=== PATIENT | male | born 1970 | race Caucasian/White ===

== ENCOUNTER 2016-09-08 19:01 | Emergency (ER) | payer BC ==
[~2016-09-08] VITALS: Ht 190.5 cm; Wt 96.0 kg
[2016-09-08 19:04] VITALS: Ht 190.5 cm; Wt 96.0 kg
[2016-09-08] MEDS ORDERED: SOD CHLORIDE 0.9% 1,000 ML IV STA (19:23)
[2016-09-08] MEDS ORDERED: morphine 4 MG/ML VIAL IV STA (19:23)
[2016-09-08] MEDS ORDERED: ONDANSETRON 4 MG INJ IV STA ×2 (19:23→21:05)
[2016-09-08 20:03] LABS: BASOPHILS % 0.3 % (0.0-2.0); EOSINOPHILS % 0.1 % (0.0-7.0); HEMATOCRIT 43.5 % (42.0-52.0); HEMOGLOBIN 14.7 g/dl (14.0-18.0); LYMPHOCYTES # 1.5 10^3/ul (0.8-2.9); LYMPHOCYTES % 13.9 % (15.0-51.0); MEAN CORPUSCULAR HEMOGLOBIN 30.8 pg (29.0-33.0); MEAN CORPUSCULAR HGB CONC 33.7 g/dl (32.0-37.0); MEAN CORPUSCULAR VOLUME 91.4 fl (82.0-101.0); MEAN PLATELET VOLUME 8.2 fl (7.4-10.4); MONOCYTE # 0.6 10^3/ul (0.3-0.9); MONOCYTES % 5.8 % (0.0-11.0); NEUTROPHIL # 8.4 10^3/ul (1.6-7.5); NEUTROPHILS % 79.9 % (39.0-77.0); PLATELET COUNT 303 10^3/UL (140-440); RED BLOOD COUNT 4.76 10^6/ul (4.70-6.10); RED CELL DISTRIBUTION WIDTH 13.2 % (11.5-14.5); UNCORRECTED WBC 10.5 10^3/ul (4.8-10.8); WHITE BLOOD COUNT 10.5 10^3/ul (4.8-10.8)
--- NOTE | 2016-09-08 20:06 | RADRPT ---
PROCEDURE: Ultrasound Gallbladder. CLINICAL INDICATION: Abdominal pain. TECHNIQUE: Multiple sonographic images of the right upper quadrant of the abdomen were obtained. COMPARISON: CT abdomen/pelvis 09/08/2016. FINDINGS: The visualized pancreas, aorta and IVC are unremarkable. The liver measures 16.3 cm in a craniocaudal dimension and is normal in echogenicity. The main port al vein is patent with antegrade flow. The common bile duct measures 3.8 mm, which is within normal limits. The gallbladder is not distended. There are no internal echoes to suggest the presence of cholelithiasis. There is no gallbladder wall thickening or pericholecystic fluid. The right kidney measures 11.5 cm in length. There is no hydronephrosis. IMPRESSION: Unremarkable gallbladder/right upper quadrant abdominal ultrasound. RPTAT: HLST .Kori Carlin MD, MD Date Time Electronically viewed and signed by .Kori Carlin MD, on 09/08/2016 20:06 .T/
[2016-09-08 20:09] LABS: CONDITION 1
[2016-09-08 20:12] LABS: ALBUMIN 4.5 g/dl (3.3-4.9)
[2016-09-08 20:13] LABS: POTASSIUM 4.1 mmol/L (3.5-5.1)
[2016-09-08 20:15] LABS: ALBUMIN/GLOBULIN RATIO 1.66; BILIRUBIN,INDIRECT 0.4 mg/dl (0-1.1); BILIRUBIN,TOTAL 0.4 mg/dl (0.2-1.3); CREATININE 0.82 mg/dl (0.61-1.24); TOTAL PROTEIN 7.2 g/dl (6.1-8.1)
[2016-09-08 20:16] LABS: CALCIUM 9.3 mg/dl (8.4-10.2)
--- NOTE | 2016-09-08 20:20 | RADRPT ---
PROCEDURE: CT abdomen and pelvis without intravenous contrast. CLINICAL INDICATION: Right upper quadrant pain. TECHNIQUE: CT of the abdomen/pelvis was performed utilizing axial images with reconstructions in s agittal and coronal planes. The administered radiation dose is CTDI 10.6 mGy, DLP 570 mGy-cm. COMPARISON: No pertinent prior examinations were submitted for comparison. FINDINGS: Visualized Chest: The visualized lung bases are clear. Abdomen: The liver, spleen, pancreas, gallbladder,and adrenal glands are unremarkable. The kidneys are without hydronephrosis. No definite urinary calculi are seen. There is no evidence of bowel obstruction. The appendix is normal. No intra-abdominal free air is seen. There is no evidence of intra-abdominal adenopathy or free fluid. Pelvis: There is no evidence of pelvic adenopathy of free fluid. The prostate and bladder are unremarkable. Osseous structures: Unremarkable. IMPRESSION: No acute findings. RPTAT: HIKT .Ethan Vogel MD, MD Date Time Electronically viewed and signed by .Ethan Vogle MD, MD on 09/08/2016 20:19 .T/
[2016-09-08] MEDS ORDERED: DICLOFENAC SODIUM 37.5 MG/ML VIAL IV STA (20:21)
[2016-09-08 20:46] LABS: ADD UMIC NO; URINE BILIRUBIN (Dip) NEGATIVE (NEGATIVE); URINE BLOOD (Dip) NEGATIVE (NEGATIVE); URINE COLOR LT. YELLOW (YELLOW); URINE GLUCOSE (Dip) NEGATIVE (NEGATIVE); URINE KETONES (Dip) NEGATIVE (NEGATIVE); URINE LEUKOCYTE ESTERASE (Dip) NEGATIVE (NEGATIVE); URINE NITRITE (Dip) NEGATIVE (NEGATIVE); URINE TOTAL PROTEIN (Dip) NEGATIVE (NEGATIVE); URINE UROBILINOGEN (Dip) 1.0 E.U./dL (0.1-1.0)
[2016-09-08] MEDS ORDERED: ONDA4TAB14 PO (21:06)
[2016-09-08] MEDS ORDERED: HYDR-902 PO (21:06)
[2016-09-08 21:19] VITALS: BP 141/58; PULSE 88; RESP 18
--- NOTE | 2016-09-08 21:44 | ERD ---
ER Documentation Chief Complaint Date/Time DATE: 09/08/16 TIME: 21:41 Chief Complaint abdominal pain x 3 days, nausea HPI Patient is a 45-year-old male with hypertension and diabetes who presents with abdominal pain. He said that 2 days ago he started with abdominal pain. He has a history of a hernia at 6 years old which she had repaired and was concerned he might have another hernia. He has had vomiting but no diarrhea. The pain was initially midepigastric but then moved to the right upper quadrant. He also has right-sided back pain as well. He thought it might have been a virus but it persisted and got worse. He has no fevers. He has no body aches. He tried Zantac and Motrin. His primary doctor is Dr. Montenegro. Upon review of old medical records this is the patient's first visit to the emergency department. ROS All systems reviewed and are negative except as per history of present illness. Medications Home Meds Active Scripts Ondansetron (Ondansetron Odt) 4 Mg Tab.rapdis, 4 MG PO Q6H Y for NAUSEA AND/OR VOMITING, #30 TAB Prov:FORREST HUANG MD 09/08/16 Hydrocodone/Acetaminophen ([place] 10-325 Tablet) 1 Each Tablet, 1 TAB PO Q6H Y for PAIN, #12 TAB Prov:FORREST HUANG MD 09/08/16 Allergies Allergies: Coded Allergies: No Known Allergy (Unverified , 09/08/16) PMhx/Soc Positive for hypertension and diabetes Hx Alcohol Use: No Hx Substance Use: No Hx Tobacco Use: No Smoking Status: Never smoker FmHx Family History: diabetes Physical Exam Vitals Vital Signs Date Time Temp Pulse Resp B/P Pulse Ox O2 Delivery O2 Flow Rate FiO2 09/08/16 21:19 88 18 141/58 Room Air 09/08/16 20:12 78 18 148/68 98 Room Air 09/08/16 19:04 98.4 75 20 150/76 99 Physical Exam Const: Mild distress secondary to pain Head: Atraumatic Eyes: Normal Conjunctiva ENT: Normal External Ears, Nose and Mouth. Neck: Full range of motion..~ No meningismus. Resp: Clear to auscultation bilaterally Cardio: Regular rate and rhythm, no murmurs Abd: Soft, midepigastric and right upper quadrant tenderness to palpation without rebound or guarding Skin: No petechiae or rashes Back: No midline or flank tenderness Ext: No cyanosis, or edema Neur: Awake and alert Psych: Normal Mood and Affect Result Diagram: 09/08/16195409/08/161954 Results 24 hrs Laboratory Tests Test 09/08/16 19:55 09/08/16 20:20 Alanine Aminotransferase (ALT/SGPT) 44IU/L Albumin 4.5g/dl Albumin/Globulin Ratio 1.66 Alkaline Phosphatase 48IU/L Anion Gap 17 Aspartate Amino Transf (AST/SGOT) 25IU/L Basophils # 0.010^3/ul Basophils % 0.3% Blood Urea Nitrogen 15mg/dl Calcium Level 9.3mg/dl Carbon Dioxide Level 27mmol/L Chloride Level 103mmol/L Creatinine 0.82mg/dl Direct Bilirubin 0.00mg/dl Eosinophils # 0.010^3/ul Eosinophils % 0.1% Globulin 2.70g/dl Glucose Level 118mg/dl Hematocrit 43.5% Hemoglobin 14.7g/dl Indirect Bilirubin 0.4mg/dl Lipase 203U/L Lymphocytes # 1.510^3/ul Lymphocytes % 13.9% Mean Corpuscular Hemoglobin 30.8pg Mean Corpuscular Hemoglobin Concent 33.7g/dl Mean Corpuscular Volume 91.4fl Mean Platelet Volume 8.2fl Monocytes # 0.610^3/ul Monocytes % 5.8% Neutrophils # 8.410^3/ul Neutrophils % 79.9% Nucleated Red Blood Cells # 0.010^3/ul Nucleated Red Blood Cells % 0.0/100WBC Platelet Count 36147^3/UL Potassium Level 4.1mmol/L Red Blood Count 4.7610^6/ul Red Cell Distribution Width 13.2% Sodium Level 143mmol/L Total Bilirubin 0.4mg/dl Total Protein 7.2g/dl White Blood Count 10.510^3/ul Urine Bilirubin NEGATIVE Urine Clarity HAZY Urine Color LT. YELLOW Urine Glucose NEGATIVE% Urine Hemoglobin NEGATIVE Urine Ketones NEGATIVE Urine Leukocyte Esterase NEGATIVE Urine Nitrite NEGATIVE Urine Specific [place] 1.015 Urine Total Protein NEGATIVE Urine Urobilinogen 1.0 E.U./dL Urine pH 8.5 Current Medications Medications (Trade) Dose Ordered Sig/Myrna Route PRN Reason Start Time Stop Time Status Last Admin Dose Admin Sodium Chloride (NS) 1,000 ml @ 1,000 mls/hr Q1H STAT IV 09/08/16 19:23 09/08/16 20:22 DC 09/08/16 20:00 Morphine Sulfate (morphine) 4 mg ONCE STAT IV 09/08/16 19:23 09/08/16 19:25 DC 09/08/16 19:40 Ondansetron HCl (Zofran Inj) 4 mg ONCE STAT IV 09/08/16 19:23 09/08/16 19:25 DC 09/08/16 19:40 Diclofenac Sodium (Dyloject) 37.5 mg ONCE STAT IV 09/08/16 20:21 09/08/16 20:22 DC 09/08/16 20:38 Ondansetron HCl (Zofran Inj) 4 mg ONCE STAT IV 09/08/16 21:05 09/08/16 21:06 DC 09/08/16 21:11 Procedures/MDM CT scan shows no surgical process per radiology. Ultrasound the gallbladder is normal per radiology. Patient is a 45-year-old male with hypertension and diabetes who presents with abdominal pain and vomiting. The patient had a full workup including laboratory studies, ultrasound of the gallbladder, and CT scan of the abdomen and pelvis. His workup did not show any signs of infection or bowel obstruction. At this point I doubt appendicitis, cholecystitis, pancreatitis, or bowel obstruction. I believe outpatient management is appropriate. However the patient will need close follow-up with Dr. Montenegro within 24 hours for reevaluation. He can return sooner for any worsening symptoms. He will be given a prescription for [place] and Zofran for symptomatic relief. Departure Diagnosis: Primary Impression: Abdominal pain Abdominal location: right upper quadrant Qualified Code: R10.11 - Right upper quadrant abdominal pain Additional Impression: Vomiting Vomiting type: unspecified Vomiting Intractability: non-intractable Nausea presence: with nausea Qualified Code: R11.2 - Non-intractable vomiting with nausea, unspecified vomiting type Condition: Fair Patient Instructions: Abdominal Pain Additional Instructions: FOLLOW UP WITH YOUR PRIMARY CARE PHYSICIAN TOMORROW.Return to this facility if you are not improving as expected. FORREST HUANG MD Sep 08, 2016 21:44
== END 2016-09-08 21:22 | disposition home or self-care (01) ==
LOC: E/R 19:01 → EEVIPCON 19:01 → E/R 21:22
DX: R10.11 Right upper quadrant pain (principal); R11.2 Nausea with vomiting, unspecified; I10 Essential (primary) hypertension; E11.9 Type 2 diabetes mellitus without complications
CPT/HCPCS: 36415; 74176; 76705; 80053; 81003; 83690; 85025; 96374; 96375; 96376; 99285; J2270; J2405; J7030